=== PATIENT | female | born 1960 | race Caucasian/White ===

== ENCOUNTER 2023-11-27 10:40 | Outpatient (RCR) | payer MEDICARE, MEDICAID, SELFPAY | END 2024-02-17 13:58 | disposition home or self-care (01) | LOC: HO.WCC 10:40 | PROVIDERS: PCP Internal Medicine; Referring Provider Podiatrist; Visit Provider Surgery | DX: Z09 Encounter for follow-up examination after completed treatment for conditions other than malignant neoplasm (principal); E11.40 Type 2 diabetes mellitus with diabetic neuropathy, unspecified; E11.319 Type 2 diabetes mellitus with unspecified diabetic retinopathy without macular edema; E11.22 Type 2 diabetes mellitus with diabetic chronic kidney disease; I12.9 Hypertensive chronic kidney disease with stage 1 through stage 4 chronic kidney disease, or unspecified chronic kidney disease; N18.2 Chronic kidney disease, stage 2 (mild); Z87.891 Personal history of nicotine dependence; Z86.31 Personal history of diabetic foot ulcer | CPT/HCPCS: 11042; 99212 ==

== ENCOUNTER 2024-04-16 07:34 | Outpatient (RCR) | payer MEDICARE, MEDICAID, SELFPAY | END 2024-07-21 12:36 | disposition home or self-care (01) | LOC: HO.WCC 07:34 | PROVIDERS: PCP Internal Medicine; Visit Provider Surgery | DX: E11.621 Type 2 diabetes mellitus with foot ulcer (principal); L97.522 Non-pressure chronic ulcer of other part of left foot with fat layer exposed; L97.523 Non-pressure chronic ulcer of other part of left foot with necrosis of muscle; S81.012A Laceration without foreign body, left knee, initial encounter; L03.116 Cellulitis of left lower limb; R60.0 Localized edema; E11.40 Type 2 diabetes mellitus with diabetic neuropathy, unspecified; E11.22 Type 2 diabetes mellitus with diabetic chronic kidney disease; E11.319 Type 2 diabetes mellitus with unspecified diabetic retinopathy without macular edema; I12.9 Hypertensive chronic kidney disease with stage 1 through stage 4 chronic kidney disease, or unspecified chronic kidney disease; N18.2 Chronic kidney disease, stage 2 (mild); W19.XXXA Unspecified fall, initial encounter; Y93.9 Activity, unspecified; Y92.9 Unspecified place or not applicable; Y99.9 Unspecified external cause status; Z87.891 Personal history of nicotine dependence | CPT/HCPCS: 11042; 11043; 87070; 87077; 87186; 87205; 97597 ==